=== PATIENT | female | born 1980 | race Caucasian/White ===

== ENCOUNTER 2018-03-02 10:48 | Inpatient (IN) | payer BC, OTHER ==
[2018-03-02] MEDS ORDERED: OBEPIDURAL* 250 ML EPIDURAL ONE (12:29)
--- NOTE | 2018-03-02 12:29 | HP ---
General Information - General Information Maternal Age: 37 Grav: 2 Para: 1 SAB: 0 IEA: 0 Estimated Due Date: 03/03/18 Determined By: LMP Gestational Age in Weeks/Days: 39w 6d Maternal Blood Type and Rh: A Positive - Results this Serology/RPR Result: Non-Reactive Rubella Result: Immune HBsAg Result: Negative HIV Result: Negative GBS Culture Result: Negative Past Medical History Delivery History: Hx Uncomplicated Vaginal Delivery Pertinent Past Medical History: Non-Contributory Pertinent Past Surgical History: None Pertinent Family History: See Records - Antepartal Records Antepartal Records: Reviewed, Complicated by: - age 37. Baby with mild pyelectasis Review of Systems Constitutional: Uncomfortable CV Complaint: No Respiratory: Shortness of Breath: No Gastrointestinal: Nausea, Vomiting Genitourinary: No Leaking Fluid Musculoskeletal: Contractions Neurological: No Headache, No Visual Changes Movement: Normal Exam Allergies/Adverse Reactions: Allergies JOCY Allergy (Intermediate, Uncoded 07/15/15 18:05) RASH, LIPS SWELLING - Measurements Height: 5 ft 6 in Weight: 169 lb Body Mass Index (BMI): 27.2 Pre- Weight: 135 lb - Exam Breast: - - soft, no masses Extremities: No Edema Heart: Normal Rhythm/Heart Sounds HEENT: No Significant Findings Lungs: Clear Bilaterally Reflexes: DTR 2+ Thyroid: No Thyromegaly - Abdominal Exam Abdomen Exam: Non-Tender - Ultrasound/Biophysical Profile Ultrasound Status: Not Done Targeted Exam Findings Estimated Weight: EFW 7.5 Cervical Exam: 6cm Effacement: 100% Station: -1 Presenting Part: Vertex Membrane Status: Bulging EFM Findings - External Monitor Findings Baseline Heart Rate: 150 External Monitor Findings: Accelerations Present, No Pattern of Variable or Late Decelerations, Baseline Stable External Monitor Findings Comment: category 1 Contractions: Regular, Moderate Contraction Frequency: q 3 min Assessment/Plan - Assessment at 39w 6 days, in labor. Wants epidural - Plan Plan: Admit - Anticipate Vaginal Delivery - Date/Time of Admission Date of Admission: 03/02/18 Time of Admission: 12:00
[2018-03-02] MEDS ORDERED: fentaNYL* 50 MCG/ML 2 ML VIAL (100 MCG VIAL) ONE (12:32)
[2018-03-02 12:53] LABS: ABS Basophils 0 10^3/ul (0-0.2); ABS Eosinophils 0 10^3/ul (0-0.6); ABS Lymphocytes 0.9 10^3/ul (1.0-4.8); ABS Monocytes 0.6 10^3/ul (0-0.8); ABS Neutrophils 13.3 10^3/ul (1.5-7.7); ABS Nucleated RBC 0 10^3/ul; Eosinophil % 0.1 % (0-6); Hematocrit 37 % (35-47); Hemoglobin 12.3 g/dl (12.0-16.0); Lymphocyte % 6.2 % (25-47); Mean Corpuscular HGB Conc 33 g/dl (31-36); Mean Corpuscular Hemoglobin 28 pg (27-31); Mean Corpuscular Volume 83 fL (80-97); Mean Platelet Volume 9.5 um3 (7.4-10.4); Nucleated Red Blood Cells % 0.1; Platelet Count 188 10^3/ul (150-450); Red Blood Count 4.43 10^6/ul (4.00-5.40); Red Cell Distribution Width 14 % (10.5-15); White Blood Count 14.9 10^3/ul (3.5-10.8)
[2018-03-02] MEDS ORDERED: Famotidine TAB* 20 MG PO PRN (13:08)
[2018-03-02] MEDS ORDERED: Sodium Citrate/Citric Acid* 15 ML UDC PO PRN (13:08)
[2018-03-02] MEDS ORDERED: Phenylephrine IV* 40 MCG/ML 10 ML SYRINGE IV PUSH PRN ×2 (13:08)
[2018-03-02] MEDS ORDERED: OBEPIDURAL* 250 ML EPIDURAL SCH (14:00)
[2018-03-02] MEDS ORDERED: Oxytocin in LR* 20 UNITS/1,000 ML BAG IVPB ONE (17:21)
[2018-03-02] MEDS ORDERED: Witch Hazel PAD* JAR TOPICAL PRN (17:41)
[2018-03-02] MEDS ORDERED: Dibucaine 1% 28.35 GM TUBE PR PRN (17:41)
[2018-03-02] MEDS ORDERED: Glycerin ADULT SUPP PR PRN (17:41)
[2018-03-02] MEDS ORDERED: Witch Hazel PAD* JAR ONE (17:53)
[2018-03-02] MEDS: Ibuprofen TAB* 600 MG PO PRN (17:53)
--- NOTE | 2018-03-02 17:57 | PROCNOTE ---
[facility] OB: Delivery Note - Delivery A Date of : 03/02/18 Time of : 17:26 [place] Sex: Male Score 1 Minute: 9 Score 5 Minutes: 10 Gestational Age in Weeks and Days at Delivery: 39 Weeks and 6 Days Delivery Method: Spontaneous Vaginal Labor: Spontaneous Amniotic Fluid: Clear - at rupture. Mec stained fluid with delivery of body Estimated Blood Loss: 100 Anesthesia/Analgesia: CEI for Labor Anesthesia Comment: Dr. Fajardo Delivered By: Zoie Taylor - Nursery Level of Nursery: Regular/Bedside - Perineum Perineal Injury: Abrasion Only - Not Repaired - Additional Delivery Notes Additional Delivery Notes: SVB LMC, OA over left labial and introital abrasions. Mec stained fluid with delivery of body. Infant pink with stimulation, to maternal abd. Placenta fanny, intact. Fundus firm with massage, IV with pitocin running. Mother/baby in good condition.
[2018-03-02] MEDS ORDERED: Oxytocin in LR* 20 UNITS/1,000 ML BAG IVPB SCH (18:00)
[2018-03-02] MEDS: Acetaminophen TAB* 325 MG PO PRN (22:08)
[2018-03-02] MEDS: Docusate CAP* 100 MG PO SCH (22:09)
[2018-03-03] MEDS: Ibuprofen TAB* 600 MG PO PRN ×3 (00:06→18:58)
[2018-03-03] MEDS: Acetaminophen TAB* 325 MG PO PRN ×2 (04:26→10:09)
[2018-03-03 08:30] LABS: Hematocrit 33 % (35-47); Hemoglobin 11.1 g/dl (12.0-16.0); Mean Corpuscular HGB Conc 34 g/dl (31-36); Mean Corpuscular Hemoglobin 28 pg (27-31); Mean Corpuscular Volume 84 fL (80-97); Mean Platelet Volume 9.1 um3 (7.4-10.4); Platelet Count 173 10^3/ul (150-450); Red Blood Count 3.93 10^6/ul (4.00-5.40); Red Cell Distribution Width 14 % (10.5-15); White Blood Count 12.8 10^3/ul (3.5-10.8)
[2018-03-03] MEDS ORDERED: Ferrous Gluconate TAB* 324 MG TAB PO SCH (09:00)
[2018-03-03] MEDS: Docusate CAP* 100 MG PO SCH ×3 (10:09→21:25)
[2018-03-04] MEDS: Ibuprofen TAB* 600 MG PO PRN ×2 (00:51→08:31)
[2018-03-04 08:11] VITALS: BP 98/46
[2018-03-04] MEDS: Docusate CAP* 100 MG PO SCH (08:30)
[2018-03-04] MEDS: Acetaminophen TAB* 325 MG PO PRN (10:43)
== END 2018-03-04 12:44 | disposition home or self-care (01) | DRG 560 ==
LOC: MCHOBOUT 10:48 → MCHOB 11:50
PROVIDERS: ADMIT Midwife; ATTEND Midwife
PROC: 10907ZC Drainage of Amniotic Fluid, Therapeutic from Products of Conception, Via Natural or Artificial Opening (ICD-10-PCS; principal; 2018-03-02)
PROC: 10E0XZZ Delivery of Products of Conception, External Approach (ICD-10-PCS; 2018-03-02)
PROC: 4A1HX4Z Monitoring of Products of Conception, Cardiac Electrical Activity, External Approach (ICD-10-PCS; 2018-03-02)
DX: O77.0 Labor and delivery complicated by meconium in amniotic fluid (principal); O71.89 Other specified obstetric trauma; Z91.018 Allergy to other foods; Z3A.39 39 weeks gestation of pregnancy; Z37.0 Single live birth
CPT/HCPCS: 36415; 85025; 85027; 86850; 86900; 86901; 90686; A9270-GY; J3010